=== PATIENT | male | born 1965 | race Caucasian/White ===

== ENCOUNTER 2017-11-16 16:39 | Emergency (ER) | payer MEDICAID ==
[~2017-11-16] VITALS: Ht 170.2 cm; Wt 86.9 kg
[~2017-11-16 16:39] MED LIST: diabetic med
[2017-11-16 17:18] LABS: BASOPHILS # (AUTO) 0.01 x10^3/uL (0-0.1); BASOPHILS % (AUTO) 0 % (0-1); EOSINOPHILS # (AUTO) 0.16 x10^3/uL (0-0.4); EOSINOPHILS % (AUTO) 2 % (1-7); LYMPHOCYTES # (AUTO) 1.51 x10^3/uL (1-3.4); LYMPHOCYTES % (AUTO) 17 % (22-44); MD NO; MEAN CORPUSCULAR HEMOGLOBIN 29.7 pg (27.5-34.5); MEAN CORPUSCULAR HGB CONC 34.4 g/dL (33.2-36.2); MEAN CORPUSCULAR VOLUME 86.4 fL (81-97); MEAN PLATELET VOLUME 9.9 fL (7.4-10.4); MONOCYTES # (AUTO) 0.66 x10^3/uL (0.2-0.8); MONOCYTES % (AUTO) 7 % (2-9); NEUTROPHILS # (AUTO) 6.65 x10^3/uL (1.8-6.8); NEUTROPHILS % (AUTO) 74 % (42-75); PLATELET COUNT 183 x10^3/uL (130-400); RED BLOOD COUNT 3.97 x10^6/uL (4.38-5.82); RED CELL DISTRIBUTION WIDTH 13.5 % (9.4-14.8)
[2017-11-16] MEDS ORDERED: AMLO10TA6 PO (17:25)
[2017-11-16] MEDS ORDERED: LISI40TA PO (17:25)
[2017-11-16] MEDS ORDERED: LINA5TAB PO (17:25)
[2017-11-16] MEDS ORDERED: HYDR12.53 PO (17:25)
[2017-11-16] MEDS ORDERED: ATOR40TA78 PO (17:25)
[2017-11-16] MEDS ORDERED: ASPI-621 PO (17:25)
[2017-11-16 17:29] LABS: ALANINE AMINOTRANSFERASE 21 U/L (12-78); ALBUMIN 2.6 g/dL (3.4-5.0); ANION GAP 6 mmol/L (5-15); CALCIUM 7.6 mg/dL (8.5-10.1); CHLORIDE 112 mmol/L (98-107); CREATININE 1.57 mg/dL (0.7-1.3)
[2017-11-16 17:30] LABS: ALKALINE PHOSPHATASE 110 U/L (45-117); BILIRUBIN,TOTAL 0.3 mg/dL (0.2-1.0); TOTAL PROTEIN 6.1 g/dL (6.4-8.2)
[2017-11-16] MEDS ORDERED: VANCOMYCIN PER PHARMACY MC ONE (17:30)
[2017-11-16] MEDS ORDERED: SODIUM CHLORIDE FLUSH 10ML SYR IVF ONE (17:30)
[2017-11-16] MEDS ORDERED: VANCOMYCIN 1,700 MG in SODIUM CHLORIDE 0.9% 250 ML IV ONE (18:00)
[2017-11-16 19:44] VITALS: BP 124/82
== END 2017-11-16 19:47 | disposition home or self-care (01) ==
LOC: ED 19:28
DX: L03.011 Cellulitis of right finger (principal)
CPT/HCPCS: 29130; 36415; 73130; 80053; 82962; 85025; 96365; 96366; 99285; J3370; J7050